=== PATIENT | male | born 2000 | race Caucasian/White ===

== ENCOUNTER 2024-04-29 05:18 | Emergency (ER) | payer OTHER, SELFPAY ==
[2024-04-29 05:27] VITALS: BP 129/89; PULSE 103; TEMP 36.7; O2SAT 97; BMI 20.2
--- NOTE | 2024-04-29 05:44 | ED_ITS ---
HPI - Psych General Chief Complaint: Psychiatric Symptoms Time Seen by Provider: 04/29/24 05:44 Source: Reports patient and law enforcement Mode of arrival: law enforcement Limitations: Reports no limitations History of Present Illness HPI Narrative: patient comes in depressed and suicidal. states he wanted to shoot himself with guns at home but they were taken by family. had loaded gun in his mouth and family reportedly tackled him. States he jumped out of the 2nd story window and ran. Denies injury from the jump. Caught by police and brought to the ER. Denies use of street drugs or over dose on drugs. Did drink alcohol tonight. Past in patient psych treatment Related Data Home Medications ?Medication ?Instructions ?Recorded ?Confirmed No Known Home Medications 04/29/24 04/29/24 Allergies Allergy/AdvReac Type Severity Reaction Status Date / Time No Known Drug Allergies Allergy Verified 04/29/24 05:30 Review of Systems ROS Status of ROS 10 or more systems reviewed and unremark able except as noted in history and below Exam Constitutional Vital Signs, click to edit/add: Last Vital Signs Temp 98.0 F 04/29/24 05:27 Pulse 103 H 04/29/24 05:27 Resp 18 04/29/24 05:27 BP 129/89 04/29/24 05:27 Pulse Ox 97 04/29/24 05:27 O2 Del Method Room Air 04/29/24 05:27 Common normals: no apparent distress, average body habitus, oriented x3, no limitations, healthy appearing, alert and well nourished [facility] Common normals: normocephalic and head/scalp atraumatic Eye Common normals: PERRL Respiratory Common normals: normal respiratory effort, no retractions, no use of accessory muscles and clear to auscultation bilaterally Cardio Common normals: regular rate, regular rhythm, S1 normal heart sound and S2 normal heart sound GI Common normals: Normal to inspection, nondistended, normoactive bowel sounds present, soft to palpation and non-tender Extremity Common normals: normal to inspection and full ROM Neuro Common normals: oriented x3, CN's II-XII intact bilaterally, moves all extremities and no focal motor deficits Psych Common normals: cooperative Mood and affect: depressed mood Course Vital Signs Vital signs: Vital Signs Temperature 98.0 F 04/29/24 05:27 Pulse Rate 103 H 04/29/24 05:27 Respiratory Rate 18 04/29/24 05:27 Blood Pressure 129/89 04/29/24 05:27 Pulse Oximetry 97 04/29/24 05:27 Oxygen Delivery Method Room Air 04/29/24 05:27 Temperature 98.0 F 04/29/24 05:27 Pulse Rate 103 H 04/29/24 05:27 Respiratory Rate 18 04/29/24 05:27 Blood Pressure 129/89 04/29/24 05:27 Pulse Oximetry 97 04/29/24 05:27 Oxygen Delivery Method Room Air 04/29/24 05:27 MDM - Psych MDM Narrative Medical decision making narrative: patient presents suicidal . Reportedly had gun in his mouth and family took it away. he jumped out of the window without harming himself and was on the run until the police caught him and brought him in. He remains suicidal. Workup initiated and care transferred to Dr Lopez at change of shift Lab Data Labs: Lab Results 04/29/24 Range/Units 05:35 WBC 7.5 (4.0-11.0) 10^3/uL RBC 4.68 L (4.70-6.10) 10^6/uL Hgb 14.8 (14.0-18.0) g/dL Hct 42.4 (42.0-54.0) % MCV 90.6 (80.0-94.0) fL MCH 31.6 (25.9-34.0) pg MCHC 34.9 (29.9-35.2) g/dL RDW 12.2 (11.0-15.0) % Plt Count 240 (150-450) 10^3/uL MPV 9.5 (9.5-13.5) fL Neut % (Auto) 74.2 (43.0-75.0) % Lymph % (Auto) 16.1 L (20.5-60.0) % [place] % (Auto) 8.1 (1.7-12.0) % Eos % (Auto) 0.5 L (0.9-7.0) % Baso % (Auto) 0.7 (0.2-2.0) % Neut # (Auto) 5.6 (1.4-6.5) 10^3/uL Lymph # (Auto) 1.2 (1.2-3.8) 10^3/uL [place] # (Auto) 0.6 (0.3-0.8) 10^3/uL Eos # (Auto) 0.0 (0.0-0.7) 10^3/uL Baso # (Auto) 0.1 (0.0-0.1) 10^3/uL Abs Immat Gran (auto) 0.03 (0.00-0.03) 10^3/uL Imm/Tot Granulo (auto) 0.4 (0.0-0.5) % Sodium 139 (136-145) mmol/L Potassium 3.4 L (3.5-5.1) mmol/L Chloride 101 (98-107) mmol/L Carbon Dioxide 26.4 (21.0-32.0) mmol/L Anion Gap 15.0 BUN 12.0 (7.0-18.0) mg/dL Creatinine 1.24 (0.70-1.30) mg/dL Est GFR ( Amer) >60 (>=60) Est GFR (Non-Af Amer) >60 (>=60) BUN/Creatinine Ratio 9.7 Glucose 116 H (74-106) mg/dL Calcium 8.9 (8.5-10.1) mg/dL Total Bilirubin 0.5 (0.2-1.0) mg/dL AST 19 (15-37) U/L ALT 21 (16-63) U/L Alkaline Phosphatase 66 (46-116) U/L Total Protein 8.3 H (6.4-8.2) g/dL Albumin 4.4 (3.4-5.0) g/dL Globulin 3.9 g/dL Albumin/Globulin Ratio 1.1 Salicylates <2.8 (<=19.9) mg/dL Acetaminophen <2.0 L (10.0-30.0) ug/mL Ethanol Quant 255 mg/dL Discharge Plan Discharge Chief Complaint: Psychiatric Symptoms Clinical Impression: Depression, Suicidal intent Patient Disposition: Still a Patient Prescriptions / Home Meds: No Action No Known Home Medications Print Language: Macanese Referrals: Physician,Non-Staff, MD [Primary Care Provider] - 1 week
--- NOTE | 2024-04-29 05:45 | ECG_ITS ---
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
[2024-04-29 05:53] LABS: Basophils Absolute Auto 0.1 10^3/uL (0.0-0.1); Basophils Percent Auto 0.7 % (0.2-2.0); Eosinophils Percent Auto 0.5 % (0.9-7.0); Hematocrit 42.4 % (42.0-54.0); Hemoglobin 14.8 g/dL (14.0-18.0); Immature Granulocytes Abs Auto 0.03 10^3/uL (0.00-0.03); Immature Granulocytes Pct Auto 0.4 % (0.0-0.5); Lymphocytes Absolute Auto 1.2 10^3/uL (1.2-3.8); Lymphocytes Percent Auto 16.1 % (20.5-60.0); Mean Corpuscular HGB Conc 34.9 g/dL (29.9-35.2); Mean Corpuscular Hemoglobin 31.6 pg (25.9-34.0); Mean Corpuscular Volume 90.6 fL (80.0-94.0); Mean Platelet Volume 9.5 fL (9.5-13.5); Monocytes Absolute Auto 0.6 10^3/uL (0.3-0.8); Monocytes Percent Auto 8.1 % (1.7-12.0); Neutrophils Absolute Auto 5.6 10^3/uL (1.4-6.5); Neutrophils Percent Auto 74.2 % (43.0-75.0); Platelet Count 240 10^3/uL (150-450); Red Blood Count 4.68 10^6/uL (4.70-6.10); Red Cell Distribution Width 12.2 % (11.0-15.0); White Blood Count 7.5 10^3/uL (4.0-11.0)
[2024-04-29 06:05] LABS: Acetaminophen <2.0 ug/mL (10.0-30.0); Ethanol 255 mg/dL; Salicylate <2.8 mg/dL (<=19.9)
[2024-04-29 06:07] LABS: Alanine Aminotransferase 21 U/L (16-63); Albumin Globulin Ratio 1.1; Albumin Level 4.4 g/dL (3.4-5.0); Alkaline Phosphatase 66 U/L (46-116); Aspartate Amino Transferase 19 U/L (15-37); BUN Creatinine Ratio 9.7; Bilirubin Total 0.5 mg/dL (0.2-1.0); Calcium 8.9 mg/dL (8.5-10.1); Carbon Dioxide 26.4 mmol/L (21.0-32.0); Chloride 101 mmol/L (98-107); Estimated GFR (African America >60 (>=60); Estimated GFR (Non-African Ame >60 (>=60); Globulin 3.9 g/dL; Glucose 116 mg/dL (74-106); Potassium 3.4 mmol/L (3.5-5.1); Sodium 139 mmol/L (136-145); Total Protein 8.3 g/dL (6.4-8.2)
[2024-04-29 06:58] LABS: Amphetamine Screen Urine NEGATIVE (NEGATIVE); Barbiturates Screen Urine NEGATIVE (NEGATIVE); Benzodiazepines Screen Urine NEGATIVE (NEGATIVE); Buprenorphine Screen Urine NEGATIVE (NEGATIVE); Cannabinoid Screen Urine POSITIVE (NEGATIVE); Cocaine Screen Urine NEGATIVE (NEGATIVE); Methadone Screen Urine NEGATIVE (NEGATIVE); Methamphetamines Screen Urine NEGATIVE (NEGATIVE); Opiate Screen Urine NEGATIVE (NEGATIVE); Oxycodone Screen Urine NEGATIVE (NEGATIVE); Phencyclidine Screen Urine NEGATIVE (NEGATIVE); Tricyclic Antidepressant Urine NEGATIVE (NEGATIVE)
== END 2024-04-29 10:48 ==
PROVIDERS: Emergency Provider Internal Medicine
DX: R45.851 Suicidal ideations (principal); F32.9 Major depressive disorder, single episode, unspecified
CPT/HCPCS: 36415; 80053; 80179; 80307; 80320; 80329; 85025; 93005; 99285